=== PATIENT | female | born 1970 | race Hispanic/Latino ===

== ENCOUNTER 2018-10-06 13:24 | Emergency (ER) | payer MEDICARE, OTHER ==
[2018-10-06 14:32] LABS: APPEARANCE,URINE Cloudy (CLEAR); BILIRUBIN,URINE Negative (NEGATIVE); COLOR,URINE Yellow (YELLOW); GLUCOSE, URINE (UA) Negative (NEGATIVE); KETONES,URINE Negative (NEGATIVE); LEUKOCYTE ESTERASE ,URINE Negative (NEGATIVE); NITRATE,URINE Negative (NEGATIVE); OCCULT BLOOD,URINE Negative (NEGATIVE); PH,URINE 7.5 (5.0-8.0); PROTEIN,URINE Negative (NEGATIVE); UROBILINOGEN,URINE 0.2 mg/dL (0.2-1.0)
[2018-10-06 14:37] LABS: HCG,QUAL RESULT NEGATIVE (NEGATIVE)
[2018-10-06 14:40] LABS: AMORPHOUS SEDIMENT,UR Many /LPF (None Seen); BACTERIA,URINE Few /HPF (None Seen); RBC,URINE None Seen /HPF (0-1); SQUAMOUS EPITHELIAL CELL,UR 0-2 /HPF (0-2); WBC,URINE 0-1 /HPF (0-1)
== END 2018-10-06 15:11 | disposition home or self-care (01) ==
LOC: EDH 13:24
DX: M25.562 Pain in left knee (principal); M79.605 Pain in left leg
CPT/HCPCS: 81001; 81025; 93971

== ENCOUNTER 2023-12-13 15:51 | Emergency (ER) | payer MEDICARE, OTHER ==
[~2023-12-13] VITALS: Ht 162.6 cm; Wt 122.5 kg
[2023-12-13] MEDS: KETOROLAC 60 MG VIAL (30MG/ML) IM ONE (16:29)
[2023-12-13] MEDS: DIAZEPAM 5 MG/ML 2 ML SYG IM ONE (16:29)
[2023-12-13] MEDS ORDERED: CYCL10TA16 PO (17:55)
[2023-12-13] MEDS ORDERED: NAPR-1192 PO (17:55)
[2023-12-13 18:09] VITALS: BP 143/73; PULSE 61; RESP 18; O2SAT 100
== END 2023-12-13 18:10 | disposition home or self-care (01) ==
LOC: EDH 15:51
DX: S83.8X1A Sprain of other specified parts of right knee, initial encounter (principal); S80.211A Abrasion, right knee, initial encounter; M25.552 Pain in left hip; M79.652 Pain in left thigh; I10 Essential (primary) hypertension; E78.00 Pure hypercholesterolemia, unspecified; Z90.49 Acquired absence of other specified parts of digestive tract; Z98.890 Other specified postprocedural states; W01.0XXA Fall on same level from slipping, tripping and stumbling without subsequent striking against object, initial encounter; Y93.01 Activity, walking, marching and hiking; Y92.89 Other specified places as the place of occurrence of the external cause; Y99.8 Other external cause status
CPT/HCPCS: 99283; 73502; 73562; 96372 ×2; J3360; J1885

== ENCOUNTER 2023-12-20 01:53 | Emergency (ER) | payer OTHER ==
[~2023-12-20] VITALS: Ht 162.6 cm; Wt 127.9 kg
[~2023-12-20 01:53] MED LIST: CYCL10TA16 PO; NAPR-1192 PO
[2023-12-20 05:16] LABS: APPEARANCE,URINE CLEAR (CLEAR); BILIRUBIN,URINE NEGATIVE (NEGATIVE); COLOR,URINE YELLOW (YELLOW); GLUCOSE, URINE (UA) NEGATIVE (NEGATIVE); KETONES,URINE NEGATIVE (NEGATIVE); LEUKOCYTE ESTERASE ,URINE 25 Leu/uL (NEGATIVE); NITRATE,URINE NEGATIVE (NEGATIVE); OCCULT BLOOD,URINE NEGATIVE (NEGATIVE); PH,URINE 6.5 (5.0-8.0); PROTEIN,URINE 20 mg/dL (NEGATIVE); UROBILINOGEN,URINE 0.2 mg/dL (0.2-1.0)
[2023-12-20 05:18] LABS: ADD UA MICROSCOPIC YES
[2023-12-20 05:20] LABS: BACTERIA,URINE RARE /HPF (None Seen); MUCUS,URINE FEW LPF (None Seen); SQUAMOUS EPITHELIAL CELL,UR FEW /HPF (0-2)
[2023-12-20] MEDS ORDERED: CEPH500T PO (05:36)
[2023-12-20] MEDS: MORPHINE 4 MG SYG IVP ONE (06:03)
[2023-12-20] MEDS: METOCLOPRAMIDE 10 MG/2 ML VIAL IVP ONE (06:05)
[2023-12-20] MEDS: 0.9%NACL 1000ML 1,000 ML IV ONE (06:05)
[2023-12-20] MEDS: CEFTRIAXONE 2GM VIAL IVPB ONE (06:07)
[2023-12-20 06:35] VITALS: RESP 18; O2SAT 98
[2023-12-20 07:07] LABS: CREATININE 0.6 mg/dL (0.5-1.0); POTASSIUM 3.8 mmol/L (3.5-5.1)
[2023-12-20 07:14] LABS: BASOPHILS # (AUTO) 0.03 K/uL (0.00-0.20); BASOPHILS % (AUTO) 0.4 % (0.0-5.0); EOSINOPHILS # (AUTO) 0.21 K/uL (0.00-0.70); EOSINOPHILS % (AUTO) 2.8 % (0.0-8.0); HEMATOCRIT 32.9 % (36-48); IMMATURE GRANULOCYTE ABSOLUTE 0.02 K/uL (0-1); LYMPHOCYTES # (AUTO) 1.9 K/uL (1.0-4.8); LYMPHOCYTES % (AUTO) 24.6 % (21.0-51.0); MEAN CORPUSCULAR HEMOGLOBIN 25.9 pg (27.0-33.0); MEAN CORPUSCULAR HGB CONC 32.2 g/dL (32.0-36.0); MEAN CORPUSCULAR VOLUME 80.2 fL (79-99); MONOCYTES # (AUTO) 0.7 K/uL (0.1-1.0); MONOCYTES % (AUTO) 9.2 % (3.0-13.0); NEUTROPHILS # (AUTO) 4.8 K/uL (1.8-7.7); NEUTROPHILS % (AUTO) 62.7 % (40.0-77.0); PLATELET COUNT (AUTO) 309 K/uL (130-400); RED CELL DISTRIBUTION WIDTH 15.6 % (11.0-15.5); WHITE BLOOD COUNT (AUTO) 7.6 K/uL (4.8-10.8)
[2023-12-20 07:37] VITALS: BP 145/82; PULSE 66
== END 2023-12-20 09:00 | disposition home or self-care (01) ==
LOC: EDH 01:53
DX: L03.116 Cellulitis of left lower limb (principal); N39.0 Urinary tract infection, site not specified; I10 Essential (primary) hypertension; E78.00 Pure hypercholesterolemia, unspecified; M19.90 Unspecified osteoarthritis, unspecified site; Z90.49 Acquired absence of other specified parts of digestive tract; Z90.89 Acquired absence of other organs; Z79.899 Other long term (current) drug therapy; Z98.890 Other specified postprocedural states
CPT/HCPCS: 99285; 96365; 93971; 96375; 80048; 85025; 85378; 81001; 36415; J7030; J0696 ×2; J2765

== ENCOUNTER → 2024-05-16 | Outpatient (CLI) | payer OTHER ==
[~2024-05-16] MED LIST changes: +CEPH500T PO
== END | disposition home or self-care (01) ==
LOC: RAH 08:49
PROVIDERS: ATTEND Family Medicine
DX: M79.604 Pain in right leg (principal); R60.0 Localized edema; N39.0 Urinary tract infection, site not specified
CPT/HCPCS: 76856; 93971

== ENCOUNTER 2025-09-26 12:08 | Emergency (ER) | payer OTHER ==
[~2025-09-26] VITALS: Ht 162.6 cm; Wt 131.5 kg
--- NOTE | 2025-09-26 13:06 | ERN ---
ED Note History of Present Illness Stated Complaint: LOWER EXT SWELLING Chief Complaint: Lower Extremity Pain/Injury Time Seen by MD: 12:21 Time Seen by Midlevel: 12:22 Dictation: 55-year-old female presents to the emergency department due to concern of having swelling to the both lower extremities that has been going off and on for the past 5 months. The patient states that her PCP is aware along with having a labor crew supervisor who is managing her furosemide. She states that an echocardiogram was done which showed a 55% ejection fraction. However, she states that she was concern over whether or not she might be having an infectious process of both lower extremities due to noticing some slight redness. The patient denies having any fever or chills associated with this. At this time, she denies having any chest pain, chest pressure or shortness of breath. However, upon occasions she does describes having some dyspnea upon exertion which is not present at the moment. She states that she has going on a trip [place] 2 weeks [place] of the country and wanted to be evaluated for a possible infectious process to determine whether or not she might be requiring treatment for that 1. 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 Home Meds Active Scripts Cephalexin (Cephalexin) 500 Mg Tablet, 1 TAB PO BID for 10 Days, #20 TAB 0 Refills Prov:MALIA CAZARES 04/17/25 Cephalexin (Cephalexin) 500 Mg Tablet, 500 MG PO QID for 10 Days, #40 TAB 0 Refills Prov:BG CONNELL Sr., MD 12/20/23 Naproxen (Naproxen) 375 Mg Tablet, 375 MG PO BID for 10 Days, #20 TAB 0 Refills Prov:BG CONNELL Sr., MD 12/13/23 Cyclobenzaprine HCl (Flexeril) 10 Mg Tab, 10 MG PO TID for muscle sstiffness, #40 TAB 2 Refills Prov:BG CONNELL Sr., MD 12/13/23 Past Medical History Past Medical History: CHF, COPD, Heart Disease, Hypertension Additional Past Medical Hx: PULM HTN, RA Surgical History: Tonsillectomy, Cholecystectomy, BTL Surgical History Other: THYROIDECTOMY PSYCH History: no pertinent psych hx Social History: Lives with family History: Not Applicable RN Note Reviewed/Agreed w/PFSH: Yes Review of System Dictation Cardiovascular: 1+ pitting edema both lower extremities Initial Vital Sign VS Vital Signs Date Time Temp Pulse Resp B/P (MAP) Pulse Ox O2 Delivery O2 Flow Rate FiO2 09/26/25 12:10 97.5 78 18 143/74 97 Room Air 0 09/26/25 13:28 21 Physical Exam Dictation General: awake, alert, NAD Head/Face: Normocephalic, atraumatic Eyes: PERRL, EOMI ENT: Oral mucosa moist Neck: Trachea midline, supple Cardiovascular: RRR, 1+ pitting edema to both lower extremities pretibial down Respiratory: Symmetrical, non-labored Abdomen: Soft, non-tender, non-distended, no guarding. Skin: Warm, dry, good turgor, no rash MS/Extremity: Pulses equal, no cyanosis, neurovascular intact, FROM Neuro: COAx4, GCS 15, steady gait, Psych: Normal behavior, mood, and affect normal Results (Laboratory/Radiology) Laboratory/Radiology Laboratory Tests Test 09/26/25 13:27 09/26/25 13:37 Urine Color YELLOW (YELLOW) Urine Appearance CLOUDY (CLEAR) H Urine pH 5.5 (5.0-8.0) Urine Specific [place] 1.023 (1.001-1.031) Urine Protein NEGATIVE mg/dL (NEGATIVE) Urine Glucose (UA) NEGATIVE mg/dL (NEGATIVE) Urine Ketones NEGATIVE mg/dL (NEGATIVE) Urine Occult Blood NEGATIVE (NEGATIVE) Urine Nitrate NEGATIVE (NEGATIVE) Urine Bilirubin NEGATIVE mg/dL (NEGATIVE) Urine Urobilinogen 0.2 mg/dL (0.2-1.0) Urine Leukocyte Esterase 25 Damián/uL (NEGATIVE) H Urine RBC 0-1 /HPF (0-1) Urine WBC 2-5 /HPF (0-1) H Urine Squamous Epithelial Cells MOD /HPF (0-2) Urine Bacteria None /HPF (None Seen) White Blood Count 7.2 K/uL (4.8-10.8) Red Blood Count 4.67 MIL/uL (4.00-5.50) Hemoglobin 11.9 g/dL (12.0-16.0) L Hematocrit 37.6 % (36-48) Mean Corpuscular Volume 80.5 fL (79-99) Mean Corpuscular Hemoglobin 25.5 pg (27.0-33.0) L Mean Corpuscular Hemoglobin Concent 31.6 g/dL (32.0-36.0) L Red Cell Distribution Width 15.3 % (11.0-15.5) Platelet Count 330 K/uL (130-400) Mean Platelet Volume 9.9 fL (7.5-10.5) Immature Granulocyte % (Auto) 0.3 % (0-1) Neutrophils (%) (Auto) 67.3 % (40.0-77.0) Lymphocytes (%) (Auto) 20.7 % (21.0-51.0) L Monocytes (%) (Auto) 8.9 % (3.0-13.0) Eosinophils (%) (Auto) 2.4 % (0.0-8.0) Basophils (%) (Auto) 0.4 % (0.0-5.0) Neutrophils # (Auto) 4.9 K/uL (1.8-7.7) Lymphocytes # (Auto) 1.5 K/uL (1.0-4.8) Monocytes # (Auto) 0.6 K/uL (0.1-1.0) Eosinophils # (Auto) 0.17 K/uL (0.00-0.70) Basophils # (Auto) 0.03 K/uL (0.00-0.20) Absolute Immature Granulocyte (auto 0.02 K/uL (0-1) Nucleated Red Blood Cells 0.0 % (0.0-0.19) Sodium Level 141 mmol/L (136-145) Potassium Level 3.8 mmol/L (3.5-5.1) Chloride Level 105 mmol/L (101-111) Carbon Dioxide Level 31 mmol/L (21-32) Blood Urea Nitrogen 13 mg/dL (7-18) Creatinine 0.7 mg/dL (0.5-1.0) Glomerular Filtration Rate Calc 103 mL/min (>90) Random Glucose 108 mg/dL (70-105) H Total Calcium 9.4 mg/dL (8.5-10.1) Total Bilirubin 0.4 mg/dL (0.2-1.0) Aspartate Amino Transf (AST/SGOT) 28 U/L (10-37) Alanine Aminotransferase (ALT/SGPT) 36 U/L (12-78) Alkaline Phosphatase 104 U/L (50-136) Troponin I High Sensitivity 5 ng/L (4-50) B-Type Natriuretic Peptide 71 pg/mL (0-100) Total Protein 7.4 g/dL (6.0-8.3) Albumin 3.8 g/dL (3.5-5.0) Labs Reviewed?: Yes EKG: (+) NSR EKG Comment: EKG done 09/26/2025 at 1:14 p.m. Ventricular rate 73 beats per minute NM 158 MS QRS 103 MS QT 404 MS No STEMI. ED Course ED Course Orders Procedure Category Date Status Time Troponin I High LAB 09/26/25 Complete Sensitivity 13:09 Cbc With Differential LAB 09/26/25 Complete 13:09 Comprehensive LAB 09/26/25 Complete Metabolic Panel 13:09 Urinalysis Profile LAB 09/26/25 Complete 13:09 B-Type Natriuretic LAB 09/26/25 Complete Peptide 13:09 12 Lead Ekg Tracing- EKG 09/26/25 Complete Technical 13:09 Chest 1vw RAD 09/26/25 Resulted 13:09 Vital Signs Date Time Temp Pulse Resp B/P (MAP) Pulse Ox O2 Delivery O2 Flow Rate FiO2 09/26/25 13:28 98.2 71 19 162/76 99 Room Air* 0 21 09/26/25 12:10 97.5 78 18 143/74 97 Room Air 0 Medical Decision Making MDM MDM: Differential diagnosis: Congestive heart failure, swelling of both lower extremities, or electrolyte imbalance. Rationale: Tests considered and ordered secondary to shared decision making include: Previous outside records reviewed: Old ER visits. Risk of complication and/or morbidity or mortality of patient management: None Medications-Per medication reconciliation Need for hospitalization: Patient does not meet criteria for hospitalization. Need for emergency major/minor surgery: No There are no social concerns with this patient. Prescription drug management Prescriptions will include symptomatic care Patient's prior external medical records from other ER visits were reviewed by me as indicated. Prior testing and results from previous visits were reviewed. Prior tests were taken into account with medical decision making and resource utilization, independent historian/historians were used to obtain complete medical history. I independently interpreted the test that were performed, results were reviewed by me and considered findings on radiology if ordered. Medical management and examination interpretation discussions were had by me with other qualified healthcare professionals as indicated for the patient's care. DX & DISP Disposition: Discharge Departure Impression: Primary Impression: Edema of both lower extremities Condition: Stable Referrals: JEANE SHETTY MD (PCP) Time of Disposition: 14:54 LADONNA VASQUEZ Sep 26, 2025 13:06
[2025-09-26 13:43] LABS: APPEARANCE,URINE CLOUDY (CLEAR); GLUCOSE, URINE (UA) NEGATIVE (NEGATIVE); LEUKOCYTE ESTERASE ,URINE 25 Leu/uL (NEGATIVE); NITRATE,URINE NEGATIVE (NEGATIVE); OCCULT BLOOD,URINE NEGATIVE (NEGATIVE)
[2025-09-26 13:47] LABS: ADD UA MICROSCOPIC YES
[2025-09-26 13:54] LABS: IMMATURE GRANULOCYTE ABSOLUTE 0.02 K/uL (0-1); NUCLEATED RED BLOOD CELLS 0.0 % (0.0-0.19); PLATELET COUNT (AUTO) 330 K/uL (130-400); RED BLOOD CELL COUNT(AUTO) 4.67 MIL/uL (4.00-5.50); RED CELL DISTRIBUTION WIDTH 15.3 % (11.0-15.5); WHITE BLOOD COUNT (AUTO) 7.2 K/uL (4.8-10.8)
[2025-09-26 13:57] LABS: SQUAMOUS EPITHELIAL CELL,UR MOD /HPF (0-2)
[2025-09-26 14:04] LABS: CREATININE 0.7 mg/dL (0.5-1.0); GLOMERULAR FILTR. RATE CALC 103.0 mL/min (>90); GLUCOSE,RANDOM 108.0 mg/dL (70-105); SODIUM SERUM 141.0 mmol/L (136-145); UREA NITROGEN, BLOOD 13.0 mg/dL (7-18)
[2025-09-26 14:08] LABS: ASPARTATE AMINOTRANSFERASE 28.0 U/L (10-37); TOTAL PROTEIN, SERUM 7.4 g/dL (6.0-8.3)
--- NOTE | 2025-09-26 14:36 | HMCIMG ---
STUDY CR Chest 1 View HISTORY Shortness of breath TECHNIQUE Single frontal radiograph of the chest. COMPARISON Chest radiograph dated 02/24/2024 10:08 EDT. FINDINGS Lungs The lungs are clear without focal consolidation, pulmonary edema, or acute airspace opacity. No discrete pulmonary mass is identified. Pleural spaces No pleural effusion or pneumothorax is demonstrated. Cardiomediastinal silhouette and aorta Cardiac size and mediastinal contours are within normal limits for projection. The thoracic aortic contour is mildly prominent, compatible with aortic ectasia, without definite evidence of a large thoracic aortic aneurysm on this radiograph. Lines, tubes, and devices A right transjugular portacath is present with the catheter coursing inferiorly and medially, and the tip projecting at the region of the cavoatrial junction at the junction of the superior vena cava and right atrium, an appropriate position for a long-term central venous access device. No kinking, discontinuity, or malposition of the catheter is identified. Bones and soft tissues No acute osseous abnormality is seen. The visualized soft tissues are unremarkable. IMPRESSION * Right transjugular portacath with tip in satisfactory position at the cavoatrial junction. 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 * No acute cardiopulmonary abnormality. /[place]
--- NOTE | 2025-09-26 14:38 | EKG ---
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
[2025-09-26 14:59] VITALS: BP 158/76; PULSE 70; RESP 19; TEMP 98.2; O2SAT 98
== END 2025-09-26 15:12 | disposition home or self-care (01) ==
LOC: EDH 12:08
DX: R60.0 Localized edema (principal); R06.00 Dyspnea, unspecified; I11.0 Hypertensive heart disease with heart failure; I50.9 Heart failure, unspecified; J44.9 Chronic obstructive pulmonary disease, unspecified; Z90.89 Acquired absence of other organs; Z90.49 Acquired absence of other specified parts of digestive tract
CPT/HCPCS: 36415; 71045; 80053; 81001; 83880; 84484; 85025; 93005; 99283